=== PATIENT | female | born 1975 | race Caucasian/White ===

== ENCOUNTER 2017-10-03 17:02 | Emergency (ER) | payer MEDICAID ==
[2017-10-03 17:16] VITALS: RESP 18
[2017-10-03] MEDS ORDERED: NS 1,000 ML IV ONE ×2 (17:31→18:12)
[2017-10-03 17:57] LABS: PLATELET COUNT 117 10^3/uL (150-400)
--- NOTE | 2017-10-03 18:18 | EDPHY ---
H & P Stated Complaint: fever 6 days, body aches, right flank pain Time Seen by Provider: 10/03/17 17:09 HPI/ROS: This patient presents with a six-day history of fevers and a dry cough. She reports high fevers and chills at home. She reports associated mild shortness of breath occasionally does have some sputum production but has not noticed the color of the sputum. She has not noticed any bloody sputum. She started developing right-sided low back or flank pain today associated with her symptoms and is concerned that she might be having a kidney issue so finally came in for evaluation of her symptoms. She was driven here by private vehicle by her family. She has not tried any antipyretics. She explains that she does not believe in bring a fever down during infections. She reports a temperature as high as 105 degrees at home. ROS: Constitutional positive fevers chills and fatigue. HEENT: She denies any headache. No significant nasal congestion or facial pain. No sore throat. No ear pain. Pulmonary: As per HPI. She denies any pleuritic pain or respiratory distress. Cardiovascular: She denies any lightheadedness heart palpitations. She reports no significant chest pain. No lower extremity swelling. GI: Mild periumbilical discomfort. She reports increased flatus as well. She has no nausea vomiting or diarrhea still tolerating good p. o. intake. : She denies any dysuria frequency urgency or hematuria. No vaginal discharge. Last menstrual period was normal timing Integumentary: No skin rash Endocrine: No complaints Musculoskeletal: She complains of myalgias over the past 2 days. She did have arthralgia in her knees the 1st 24 hr of illness that has since resolved. Psychiatric: She reports decreased sleep from combination of the fever and cough. No other psychiatric complaints. Neuro: No headache. No focal numbness tingling weakness. She did have some difficulty concentrating that she has associated with her fevers and the illness. She denies any alycia confusion. Complete review of symptoms is otherwise negative. Source: Patient Exam Limitations: No limitations - Personal History LMP (Females 10-55): 15-21 Days Ago - Medical/Surgical History PMH: Immunizations are up-to-date except that she did not have influenza vaccine this year. Hx Asthma: No Hx Chronic Respiratory Disease: No Hx Diabetes: No Hx Cardiac Disease: No Hx Renal Disease: No Hx Cirrhosis: No Hx Alcoholism: No Hx HIV/AIDS: No Hx Splenectomy or Spleen Trauma: No Other PMH: 2 c-sections, interstitial cystitis. - Family History Significant Family History: No pertinent family hx - Social History Smoking Status: Former smoker Alcohol Use: Occasionally Drug Use: None Additional Social History: Originally from [place] - Physical Exam Exam: Vital signs are notable for temperature of 38.9 degrees centigrade, pulse of 112 , respiratory rate of 18, normotensive, O2 sat of 91% on room air General Appearance: Pleasant 42-year-old female Alert, no distress. Eyes: Pupils equal and round no pallor or injection. ENT, Mouth: Mucous membranes moist. Respiratory: Faint rales at the left base clear with deep breath. Otherwise clear to auscultation bilaterally. No rhonchi or wheeze. Cardiovascular: Tachycardia with no murmur gallop or rub. No peripheral edema.. Gastrointestinal: Abdomen is soft and nontender, no masses, bowel sounds normal. Back: She denies any CVA tenderness. She denies any paraspinous muscular tenderness. She retains good range of motion of her back without change in her symptoms. Neurological: GCS of 15 with no focal deficits. Skin: Warm and dry, no rashes. Musculoskeletal: Neck is supple nontender. Extremities are symmetrical, full range of motion. Psychiatric: Mood and affect normal DIFFERENTIAL DIAGNOSIS: After history and physical exam differential diagnosis was considered for influenza, pneumonia, bronchitis with fever, epidural abscess , other spinal infection, pyelonephritis, viral syndrome Constitutional: Initial Vital Signs Temperature (C) 38.9 C H 10/03/17 17:07 Heart Rate 112 H 10/03/17 17:07 Respiratory Rate 18 10/03/17 17:07 Blood Pressure 121/91 H 10/03/17 17:07 O2 Sat (%) 91 L 10/03/17 17:07 O2 Delivery Mode Room Air Allergies/Adverse Reactions: No Known Allergies Allergy (Unverified 10/03/17 17:17) Home Medications: Medication Instructions Recorded Azithromycin [Zithromax] 250 mg PO DAILY #4 tab 10/03/17 Fluconazole [Diflucan] 200 mg PO ONCE PRN #2 tablet 10/03/17 Medical Decision Making - Diagnostics Imaging Results: Imaging Impressions Chest X-Ray 10/03/17 18:26 Impression: Left lower lobe infiltrate compatible with pneumonia.. Two view chest x-ray: Left retrocardiac infiltrate by my interpretation Imaging: I viewed and interpreted images myself ED Course/Re-evaluation: By numbers the patient qualifies for sepsis with a temperature greater than 38, pulse greater than 90, white count less than 4000 and a Respiratory source of infection. Upon arrival I explained my concern for sepsis to this patient but she refuses a chest x-ray in her workup. She does accept flu swab and IV with saline bolus and lab workup. Review of labs reveals leukopenia, metabolic panel is normal, lactate is negative, rapid influenza swab is negative. A PCR influenza sent to the hospital & was negative. The patient is on her 2nd L of saline and still has not been able to provide a urine sample. Urinalysis revealed ketosis but is otherwise negative. She refuses any antipyretics. After printing out [facility] [place] sepsis scoring &explaining in detail that the patient is positive for sepsis & explaining the risk of progression to septic shock and for untreated sepsis, she finally accepted chest x-ray to continue her workup at 6:28 p.m. Noting the left basilar infiltrate on chest x-ray and describing this to the patient, she finally accepts antibiotics. Blood cultures drawn prior to ceftriaxone IV and Zithromax 500 mg p.o. Despite further encourage but she still refused any antipyretics. Interestingly on her recheck her O2 sat improved to 97% room air. Her tachycardia also diminished and she remained normotensive throughout her stay. While she has sepsis by numbers she does not have severe sepsis or septic shock. Given her clinical improvement and affect she is tolerating good p.o. intake I think that she is safe for discharge home. I carefully explained to the patient the need to return to the emergency department for any significant worsening of her symptoms despite the treatment plan and the need for her to have close follow up with primary care physician early this coming week and a few days. Answered all of her questions prior to discharge. The time discharge she is not orthostatic, and states that she feels improvement in her symptoms. She will go home on Zithromax antibiotic. She also requested the Diflucan script that she has had vaginal yeast infections following antibiotics in the past. - Data Points Laboratory Results: Laboratory Results 10/03/17 17:50 10/03/17 17:50 10/03/17 10/03/17 10/03/17 19:15 19:15 17:55 WBC RBC Hgb Hct MCV MCH MCHC RDW Plt Count MPV Neut % (Auto) Lymph % (Auto) [place] % (Auto) Eos % (Auto) Baso % (Auto) Nucleat RBC Rel Count Absolute Neuts (auto) Absolute Lymphs (auto) Absolute Monos (auto) Absolute Eos (auto) Absolute Basos (auto) Absolute Nucleated RBC Immature Gran % Immature Gran # PT 12.9 SEC SEC (12.0-15.0) INR 0.98 (0.83-1.16) APTT 34.5 SEC SEC (23.0-38.0) VBG Lactic Acid Sodium Potassium Chloride Carbon Dioxide Anion Gap BUN Creatinine Estimated GFR Glucose Calcium Urine Color YELLOW Urine Appearance CLEAR Urine pH 6.0 (5.0-7.5) Ur Specific [place] <= 1.005 (1.002-1.030) Urine Protein NEGATIVE (NEGATIVE) Urine Ketones 3+ H (NEGATIVE) Urine Blood NEGATIVE (NEGATIVE) Urine Nitrate NEGATIVE (NEGATIVE) Urine Bilirubin NEGATIVE (NEGATIVE) Urine Urobilinogen 0.2 EU EU (0.2-1.0) Ur Leukocyte Esterase NEGATIVE (NEGATIVE) Urine Glucose NEGATIVE (NEGATIVE) Urine Test NEGATIVE Nasal Influenza A PCR Nasal Influenza B PCR Influenza A,B Rapid 10/03/17 10/03/17 10/03/17 17:50 17:50 17:50 WBC 3.70 10^3/uL L 10^3/uL (3.80-9.50) RBC 4.07 10^6/uL L 10^6/uL (4.18-5.33) Hgb 11.8 g/dL L g/dL (12.6-16.3) Hct 34.5 % L % (38.0-47.0) MCV 84.8 fL fL (81.5-99.8) MCH 29.0 pg pg (27.9-34.1) MCHC 34.2 g/dL g/dL (32.4-36.7) RDW 12.6 % % (11.5-15.2) Plt Count 117 10^3/uL L 10^3/uL (150-400) MPV 9.6 fL fL (8.7-11.7) Neut % (Auto) 74.8 % H % (39.3-74.2) Lymph % (Auto) 20.0 % % (15.0-45.0) [place] % (Auto) 4.9 % % (4.5-13.0) Eos % (Auto) 0.0 % L % (0.6-7.6) Baso % (Auto) 0.0 % L % (0.3-1.7) Nucleat RBC Rel Count 0.0 % % (0.0-0.2) Absolute Neuts (auto) 2.77 10^3/uL 10^3/uL (1.70-6.50) Absolute Lymphs (auto) 0.74 10^3/uL L 10^3/uL (1.00-3.00) Absolute Monos (auto) 0.18 10^3/uL L 10^3/uL (0.30-0.80) Absolute Eos (auto) 0.00 10^3/uL L 10^3/uL (0.03-0.40) Absolute Basos (auto) 0.00 10^3/uL L 10^3/uL (0.02-0.10) Absolute Nucleated RBC 0.00 10^3/uL 10^3/uL (0-0.01) Immature Gran % 0.3 % % (0.0-1.1) Immature Gran # 0.01 10^3/uL 10^3/uL (0.00-0.10) PT INR APTT VBG Lactic Acid 0.7 mmol/L mmol/L (0.7-2.1) Sodium 133 mEq/L L mEq/L (135-145) Potassium 3.7 mEq/L mEq/L (3.5-5.2) Chloride 94 mEq/L L mEq/L (97-110) Carbon Dioxide 24 mEq/l mEq/l (22-31) Anion Gap 15 mEq/L mEq/L (8-16) BUN 7 mg/dL mg/dL (7-23) Creatinine 0.9 mg/dL mg/dL (0.6-1.0) Estimated GFR > 60 Glucose 92 mg/dL mg/dL (70-100) Calcium 8.2 mg/dL L mg/dL (8.5-10.4) Urine Color Urine Appearance Urine pH Ur Specific [place] Urine Protein Urine Ketones Urine Blood Urine Nitrate Urine Bilirubin Urine Urobilinogen Ur Leukocyte Esterase Urine Glucose Urine Test Nasal Influenza A PCR Nasal Influenza B PCR Influenza A,B Rapid 10/03/17 10/03/17 17:30 17:30 WBC RBC Hgb Hct MCV MCH MCHC RDW Plt Count MPV Neut % (Auto) Lymph % (Auto) [place] % (Auto) Eos % (Auto) Baso % (Auto) Nucleat RBC Rel Count Absolute Neuts (auto) Absolute Lymphs (auto) Absolute Monos (auto) Absolute Eos (auto) Absolute Basos (auto) Absolute Nucleated RBC Immature Gran % Immature Gran # PT INR APTT VBG Lactic Acid Sodium Potassium Chloride Carbon Dioxide Anion Gap BUN Creatinine Estimated GFR Glucose Calcium Urine Color Urine Appearance Urine pH Ur Specific [place] Urine Protein Urine Ketones Urine Blood Urine Nitrate Urine Bilirubin Urine Urobilinogen Ur Leukocyte Esterase Urine Glucose Urine Test Nasal Influenza A PCR NEGATIVE FOR FLU A (NEGATIVE) Nasal Influenza B PCR NEGATIVE FOR FLU B (NEGATIVE) Influenza A,B Rapid NEGATIVE FOR FLU (NEGATIVE) Medications Given: Discontinued Medications Azithromycin (Zithromax) 500 mg PO EDNOW ONE PRN Reason: Protocol Stop: 10/03/17 18:53 Last Admin: 10/03/17 19:07 Dose: 500 mg Sodium Chloride (Ns) 1,000 mls @ 0 mls/hr IV ONCE ONE; Wide Open PRN Reason: Protocol Stop: 10/03/17 17:32 Last Admin: 10/03/17 17:54 Dose: 1,000 mls Sodium Chloride (Ns) 1,000 mls @ 0 mls/hr IV ONCE ONE; Wide Open PRN Reason: Protocol Stop: 10/03/17 18:13 Last Admin: 10/03/17 18:47 Dose: 1,000 mls Ceftriaxone Sodium 1 gm/ (Sterile Water) 10 mls @ 150 mls/hr IV EDNOW ONE PRN Reason: Protocol Stop: 10/03/17 18:55 Last Admin: 10/03/17 19:03 Dose: Not Given Ceftriaxone Sodium 1 gm/ (Sterile Water) 10 mls @ 150 mls/hr IV EDNOW ONE PRN Reason: Protocol Stop: 10/03/17 19:07 Last Admin: 10/03/17 19:12 Dose: 10 mls Departure - Departure Disposition: Home, Routine, Self-Care Clinical Impression: Community acquired pneumonia Qualifiers: Laterality: left Lung location: lower lobe of lung Qualified Code(s): J18.1 - Lobar pneumonia, unspecified organism Condition: Fair Instructions: Azithromycin (By mouth), Fluconazole (By mouth), Community Acquired Pneumonia (ED) Additional Instructions: Diagnosis: Community-acquired pneumonia Plan: Humidifier Zithromax antibiotic Consider ibuprofen and/or Tylenol for your fevers and aches. Diflucan for vaginal yeast infection if needed Probiotic in addition Make an appointment to follow up with primary care physician for recheck in 3-5 days. Return to the emergency department for any significant worsening of your symptoms despite the treatment plan. Referrals: NEHA NEWMAN,. [Primary Care Provider] - As per Instructions Prescriptions: Azithromycin [Zithromax] 250 mg PO DAILY #4 tab Fluconazole [Diflucan] 200 mg PO ONCE PRN #2 tablet PRN Reason: vaginal yeast infection
[2017-10-03 18:22] LABS: INR 0.98 (0.83-1.16); PROTIME(PATIENT) 12.9 SEC (12.0-15.0)
[2017-10-03] MEDS ORDERED: cefTRIAXone 1 GM in STERILE WATER INJ 10 ML IV ONE ×2 (18:52→19:04)
[2017-10-03] MEDS ORDERED: AZITHROMYCIN 250 MG TAB PO ONE (18:52)
[2017-10-03] MEDS ORDERED: cefTRIAXone 1 GM VIAL ONE (18:56)
[2017-10-03 19:19] VITALS: BP 119/81; PULSE 108; TEMP 102.7; O2SAT 97
== END 2017-10-03 19:56 | disposition home or self-care (01) ==
LOC: CED 17:02
DX: J18.9 Pneumonia, unspecified organism (principal); E86.9 Volume depletion, unspecified; Z87.891 Personal history of nicotine dependence
CPT/HCPCS: 71046-PO; 80048-PO; 81003-PO; 81025-PO; 83605-PO; 85025-PO; 85610-PO; 85730-PO; 87400-PO; 96365; J0696

== ENCOUNTER 2017-10-05 11:10 | Emergency (ER) | payer MEDICAID ==
[2017-10-05 11:21] VITALS: RESP 16; O2SAT 94
--- NOTE | 2017-10-05 11:40 | EDPHY ---
H & P Stated Complaint: started antibiotic 2 days ago, now has loss of appetite and diarrhea Time Seen by Provider: 10/05/17 11:14 HPI/ROS: CHIEF COMPLAINT: Diarrhea and malaise History by patient HISTORY OF PRESENT ILLNESS: 42-year-old woman with a history of pneumonia diagnosed 2 days ago when she was seen here for cough and fever returned today because of worsening appetite and diarrhea. Patient was given a dose of IV ceftriaxone emerged department and sent home on azithromycin. She has taken the 1st 3 doses of azithromycin, including 1 this morning. Patient states the diarrhea began yesterday with 3 episodes of copious watery diarrhea without blood. She was able to eat and drink yesterday but this morning when she tried to take chicken broth she found she had no appetite for it. She had 2 episodes of watery nonbloody diarrhea this morning. She denies any vomiting. She also had persistent fever this morning and headache for which she took ibuprofen afterwards broke out into a cold sweat. She returns today because she is worried that her left try lytes are off. She is also concerned because she says when she exhales she feels a bubbly feeling in her chest. She has had a productive cough but she does not know what looks like because she swallows it. She denies any shortness of breath. REVIEW OF SYSTEMS: As in HPI, and all other systems reviewed and are negative Source: Patient - Medical/Surgical History Hx Asthma: No Hx Chronic Respiratory Disease: No Hx Diabetes: No Hx Cardiac Disease: No Hx Renal Disease: No Hx Cirrhosis: No Hx Alcoholism: No Hx HIV/AIDS: No Hx Splenectomy or Spleen Trauma: No Other PMH: 2 c-sections, interstitial cystitis. - Social History Smoking Status: Former smoker - Physical Exam Exam: General Appearance: Alert, nontoxic appearing, speaking full sentences. Head: normocephalic, atraumatic Eyes: Pupils equal and round, reactive to light, no pallor or injection. Mouth: Mucous membranes moist. Respiratory: Normal, effort, lungs crackles in the left lower lung field. Positive rhonchi and crackles with cough Cardiovascular: Regular rate and rhythm. S1, S2, no murmurs, gallops or rubs appreciated Gastrointestinal: Abdomen is soft and nontender, no masses, bowel sounds normal. Back: No CVA tenderness, no bony tenderness Neurological: Awake, alert and oriented x 3, no pronator drift, normal gait, no pronator drift Skin: Warm and dry, no rashes. Musculoskeletal: No deformities or tenderness. Extremities: full range of motion, no edema, DP2+ bilat Psychiatric: Patient has normal affect, there is no agitation. Constitutional: Initial Vital Signs Temperature (C) 36.5 C 10/05/17 11:20 Heart Rate 87 10/05/17 11:20 Respiratory Rate 16 10/05/17 11:20 Blood Pressure 124/84 H 10/05/17 11:20 O2 Sat (%) 94 10/05/17 11:20 O2 Delivery Mode Room Air Allergies/Adverse Reactions: No Known Allergies Allergy (Verified 10/05/17 11:20) Home Medications: Medication Instructions Recorded Azithromycin [Zithromax] 250 mg PO DAILY #4 tab 10/03/17 Fluconazole [Diflucan] 200 mg PO ONCE PRN #2 tablet 10/03/17 Medical Decision Making - Data Points Laboratory Results: Laboratory Results 10/05/17 11:40 10/05/17 11:40 10/05/17 10/05/17 11:40 11:40 WBC 2.40 10^3/uL L 10^3/uL (3.80-9.50) RBC 4.43 10^6/uL 10^6/uL (4.18-5.33) Hgb 12.8 g/dL g/dL (12.6-16.3) Hct 38.4 % % (38.0-47.0) MCV 86.7 fL fL (81.5-99.8) MCH 28.9 pg pg (27.9-34.1) MCHC 33.3 g/dL g/dL (32.4-36.7) RDW 12.5 % % (11.5-15.2) Plt Count 132 10^3/uL L 10^3/uL (150-400) MPV 9.5 fL fL (8.7-11.7) Neut % (Auto) 64.6 % % (39.3-74.2) Lymph % (Auto) 26.7 % % (15.0-45.0) [place] % (Auto) 7.5 % % (4.5-13.0) Eos % (Auto) 0.8 % % (0.6-7.6) Baso % (Auto) 0.0 % L % (0.3-1.7) Nucleat RBC Rel Count 0.0 % % (0.0-0.2) Absolute Neuts (auto) 1.55 10^3/uL L 10^3/uL (1.70-6.50) Absolute Lymphs (auto) 0.64 10^3/uL L 10^3/uL (1.00-3.00) Absolute Monos (auto) 0.18 10^3/uL L 10^3/uL (0.30-0.80) Absolute Eos (auto) 0.02 10^3/uL L 10^3/uL (0.03-0.40) Absolute Basos (auto) 0.00 10^3/uL L 10^3/uL (0.02-0.10) Absolute Nucleated RBC 0.00 10^3/uL 10^3/uL (0-0.01) Immature Gran % 0.4 % % (0.0-1.1) Immature Gran # 0.01 10^3/uL 10^3/uL (0.00-0.10) Sodium 140 mEq/L mEq/L (135-145) Potassium 3.6 mEq/L mEq/L (3.5-5.2) Chloride 97 mEq/L mEq/L (97-110) Carbon Dioxide 28 mEq/l mEq/l (22-31) Anion Gap 15 mEq/L mEq/L (8-16) BUN 6 mg/dL L mg/dL (7-23) Creatinine 0.8 mg/dL mg/dL (0.6-1.0) Estimated GFR > 60 Glucose 90 mg/dL mg/dL (70-100) Calcium 8.5 mg/dL mg/dL (8.5-10.4) Departure - Departure Disposition: Home, Routine, Self-Care Clinical Impression: Antibiotic-associated diarrhea Pneumonia Qualifiers: Pneumonia type: due to unspecified organism Laterality: left Lung location: unspecified part of lung Qualified Code(s): J18.9 - Pneumonia, unspecified organism Leukopenia Qualifiers: Leukopenia type: other Qualified Code(s): D72.818 - Other decreased white blood cell count Clinical Impression: (Ruled Out): Diarrhea due to malabsorption, Leukopenia due to antineoplastic chemotherapy Condition: Fair Instructions: Nutrition Tips for Relief of Diarrhea (ED) Additional Instructions: You were seen by Dr. Patricia Mccullough today. Your electrolytes were all normal today. Your white blood cell count is still low. Your platelets are also still low but improved from your last visit. Please have your primary care physician recheck these lab tests once you are over your pneumonia in 1-2 weeks. Please collect stool sample and bring it to the lab to check for C difficile diarrhea. In the meantime continue to take probiotics separate from your antibiotics. Drink plenty of fluids and try a bland diet. Return if you develop another high fever, bloody diarrhea or abdominal pain. Return for any other worsening or new concerns. Referrals: NEHA NEWMAN,. [Primary Care Provider] - As per Instructions
[2017-10-05 11:49] LABS: PLATELET COUNT 132 10^3/uL (150-400)
[2017-10-05 12:54] VITALS: BP 119/79; PULSE 80; TEMP 97.3
== END 2017-10-05 12:53 | disposition home or self-care (01) ==
LOC: CED 11:10
DX: K52.1 Toxic gastroenteritis and colitis (principal); T65.891A Toxic effect of other specified substances, accidental (unintentional), initial encounter; T36.3X5A Adverse effect of macrolides, initial encounter; J18.9 Pneumonia, unspecified organism; D72.818 Other decreased white blood cell count; Z87.891 Personal history of nicotine dependence
CPT/HCPCS: 80048-PO; 85025-PO